=== PATIENT | female | born 1940 | race African-American/Black ===

== ENCOUNTER 2018-05-13 07:42 | Emergency (ER) | payer MEDICARE, MEDICAID ==
[~2018-05-13] VITALS: Ht 167.6 cm; Wt 59.0 kg
[~2018-05-13 07:42] MED LIST: METO-293 PO; RANI150C12 PO
[2018-05-13] MEDS ORDERED: ACETAMINOPHEN 325MG TABLET PO ONE (10:30)
[2018-05-13 11:40] VITALS: BP 135/82
== END 2018-05-13 11:49 | disposition home or self-care (01) ==
LOC: ER 08:02
DX: M70.51 Other bursitis of knee, right knee (principal); G70.00 Myasthenia gravis without (acute) exacerbation; Z98.890 Other specified postprocedural states; Z88.0 Allergy status to penicillin; Z79.899 Other long term (current) drug therapy; Y93.01 Activity, walking, marching and hiking
CPT/HCPCS: 73562; 99284; L1830